=== PATIENT | male | born 1965 | race Caucasian/White ===

== ENCOUNTER → 2017-09-11 | Outpatient (CLI) | payer MEDICAID | LOC: MHCPAIN 07:56 | DX: G89.29 Other chronic pain (principal); M47.817 Spondylosis without myelopathy or radiculopathy, lumbosacral region; M50.90 Cervical disc disorder, unspecified, unspecified cervical region; M79.2 Neuralgia and neuritis, unspecified | CPT/HCPCS: G0463 ==